=== PATIENT | female | born 1960 | race Caucasian/White ===

== ENCOUNTER 2017-05-13 17:00 | Emergency (ER) | payer OTHER ==
[~2017-05-13] VITALS: Ht 167.6 cm; Wt 90.0 kg
[~2017-05-13 17:00] MED LIST: FINA15GE2 TOP; HYDR10SO PO; RIVA10 PO; Z.0.CPM; ZOLP1TAB32 PO
[2017-05-13 17:02] VITALS: BP 149/75; PULSE 68; RESP 20; TEMP 97.9; O2SAT 99
[2017-05-13] MEDS ORDERED: FINA15GE TOPICAL (17:18)
--- NOTE | 2017-05-13 17:36 | PD ---
HPI Chief Complaint: Fall Time Seen by Provider: 17:21 Travel History International Travel<30 days: No Contact w/Intl Traveler<30days: No Traveled to known affect area: No History of Present Illness HPI 56 years old female complains of left knee pain. Patient tripped and fell on the left knee this afternoon. Patient status post total left knee replacement 2 and half years ago. Patient states the pain is sharp pain localized to the anterior aspect of the left knee. Patient states that she had aching pain in the posterior aspect the left knee and the thigh area and the calf area. Patient denies any pain radiation. Patient states that the pain is worse with movement of the left knee joint and weightbearing. On a scale of 1-10 the pain is a 7. Patient denies any headache. Patient denies any neck pain. Patient denies any chest pain or shortness of breath. Patient denies abdominal pain. Patient denies any back pain. PFSH Past Medical History Cancer: No Cardiovascular Problems: No Diabetes: No Diminished Hearing: No Deep Vein Thrombosis: Yes (Right 03/2008) Endocrine: No Gastrointestinal Disorders: Yes (CONSTIPATION SECONDARY TO MEDICATION) Genitourinary: No Hepatitis: No Hiatal Hernia: No Hypertension: No Immune Disorder: No Medical other: No Musculoskeletal: Yes (LEFT KNEE PAIN, RIGHT KNEE ARTHROSCOPY ) Neurologic: Yes (HERNIATED DISK CERVICAL SPINE NUMBNESS RIGHT ARM & FINGERS) Psychiatric: No Reproductive: No Respiratory: Yes (ASTHMA) Integumentary: Yes (aldactone for skin problems) Thyroid Disease: No ?: Not Menopausal: Yes : 3 Para: 2 Miscarriage: 1 Past Surgical History Abdominal Surgery: No AICD: No Body Medical Devices: NONE Cardiac Surgery: No Ear Surgery: No Eye Surgery: No Genitourinary Surgery: No Gynecologic Surgery: No Joint Replacement: No Neurologic Surgery: No Oral Surgery: No Pacemaker: No Thoracic Surgery: No Other Surgery: Yes Social History Alcohol Use: Yes (SOCIAL) Tobacco Use: No Substance Use: No Allergies-Medications (Allergen,Severity, Reaction): Coded Allergies: Celebrex (Verified Allergy, Severe, ITCH, 03/23/15) Erythromycin (Verified Allergy, Severe, ITCH, 03/23/15) Morphine (Verified Allergy, Mild, 03/23/15) ITCHING Reported Meds & Prescriptions Reported Meds & Active Scripts Active Reported Finacea Topical (Azelaic Acid) 15% Gel 1 Applic TOPICAL BID Apply and gently massage a thin layer into affected areas on the face. Review of Systems General / Constitutional: No: Fever Eyes: No: Visual changes HENT: No: Headaches Cardiovascular: No: Chest Pain or Discomfort Respiratory: No: Shortness of Breath Gastrointestinal: No: Abdominal Pain Genitourinary: No: Dysuria Musculoskeletal: Positive: Pain Skin: No Rash Neurologic: No: Weakness Psychiatric: No: Depression Endocrine: No: Polydipsia Hematologic/Lymphatic: No: Easy Bruising Physical Exam Narrative GENERAL: Well-nourished, well-developed patient. SKIN: Focused skin assessment warm/dry. HEAD: Normocephalic. EYES: No scleral icterus. No injection or drainage. NECK: Supple, trachea midline. No JVD or lymphadenopathy. CARDIOVASCULAR: Regular rate and rhythm without murmurs, gallops, or rubs. RESPIRATORY: Breath sounds equal bilaterally. No accessory muscle use. GASTROINTESTINAL: Abdomen soft, non-tender, nondistended. MUSCULOSKELETAL: No cyanosis, or edema. BACK: Nontender without obvious deformity. No CVA tenderness. Patient has moderate tenderness on palpation prepatellar area of the left knee. Mild tenderness on palpation popliteal area and distal aspect of posterior aspect of left thigh, proximal aspect of the left calf Area. Full range motion of left knee. Knee joints stable. No effusion noted. Data Data Last Documented VS Vital Signs Date Time Temp Pulse Resp B/P Pulse Ox O2 Delivery O2 Flow Rate FiO2 05/13/17 17:02 97.9 68 20 149/75 99 Room Air Orders Knee, Complete (4vws) (05/13/17 17:24) Splint Or Brace Apply/Monitor (05/13/17 18:12) [facility] Medical Decision Making Medical Screen Exam Complete: Yes Emergency Medical Condition: Yes Interpretation(s) 18 10 PM. X-ray left knee showed no acute bony injury. Differential Diagnosis Differential diagnosis including contusion, fracture, dislocation, damage to the hardware. Narrative Course 56 years old female with left knee injury. Status post total left knee replacement in the past. Diagnosis Primary Impression: Contusion of left knee Qualified Code: S80.02XA - Contusion of left knee, initial encounter Additional Impression: Left knee sprain Qualified Code: S83.92XA - Sprain of left knee, unspecified ligament, initial encounter Patient Instructions: General Instructions Additional Instructions: Icepack as needed. Matteo wrap to left knee. Follow with an orthopedist if persistent problem. Tylenol or ibuprofen for pain. Med/Other Pt SpecificInfo: Prescription(s) given Disposition: 01 DISCHARGE HOME Condition: Stable Jake Delatorre MD May 13, 2017 17:35
--- NOTE | 2017-05-13 18:10 | RADRPT ---
EXAM DATE/TIME: 05/13/2017 17:39 [facility] COMPARISON: No previous studies available for comparison. INDICATIONS : Left knee pain after fall MEDICAL HISTORY : None. SURGICAL HISTORY : Total knee replacement, left. ENCOUNTER: Initial ACUITY: 1 day PAIN SCORE: 9/10 LOCATION: Left knee FINDINGS: 4 views left knee. Total knee prosthesis in place. Bone alignment within normal limits. No evidence of fracture. Moderate sized joint effusion. Nonspecific 9 mm ossific density in the posterior aspect of the joint on the lateral view. CONCLUSION: 1. Total knee prosthesis. Alignment within normal limits. 2. Moderate-sized joint effusion. 3. 9 mm ossific density posteriorly on the lateral view only indicating periarticular or intra-articu lar ossicle. No donor site identified. No other evidence of fracture. Titi Sesay MD on May 13, 2017 at 18:07 Board Certified Radiologist. This report was verified electronically.
== END 2017-05-13 18:31 | disposition home or self-care (01) ==
LOC: NEPD 17:00
DX: S80.02XA Contusion of left knee, initial encounter (principal); S83.92XA Sprain of unspecified site of left knee, initial encounter; W01.0XXA Fall on same level from slipping, tripping and stumbling without subsequent striking against object, initial encounter; Z96.652 Presence of left artificial knee joint
CPT/HCPCS: 29530; 73564

== ENCOUNTER 2017-07-09 17:22 | Inpatient (IN) | payer OTHER ==
[~2017-07-09] VITALS: Ht 167.6 cm; Wt 94.3 kg
[~2017-07-09 17:22] MED LIST changes: +FINA15GE TOPICAL; -FINA15GE2 TOP; -HYDR10SO PO; -RIVA10 PO; -Z.0.CPM; -ZOLP1TAB32 PO
[2017-07-09 17:26] VITALS: BP 135/74; PULSE 74; RESP 16; TEMP 97.9; O2SAT 98
[2017-07-09 18:56] VITALS: RESP 17; O2SAT 99
--- NOTE | 2017-07-09 18:58 | PD ---
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 Patient describes it currently as a 2-3 out of 10 as a dull ache in the central chest radiating to her back. Patient denies nausea, vomiting, fever, chills, heartburn, shortness of breath, wheezing, previous cardiac history. Patient does report 3 weeks of increasing anxiety and stress related to her work place. She is having difficulty sleeping which is why she took the Ambien last evening. She has had no abdominal surgery. She has no other medical issues other than a knee replacement in the left knee which is where she had the Ambien left over from. Patient states the pain does not seem to worsen with exertion or with eating food. She denies diarrhea. No urinary symptoms. No vaginal symptoms. Patient has an appointment with her PCP on Sunday for her anxiety. Patient is allergic to Celebrex, erythromycin, and morphine. PFSH Past Medical History Cancer: No Cardiovascular Problems: No Diabetes: No Diminished Hearing: No Deep Vein Thrombosis: Yes (Right 03/2008) Endocrine: No Gastrointestinal Disorders: Yes (CONSTIPATION SECONDARY TO MEDICATION) Genitourinary: No Hepatitis: No Hiatal Hernia: No Hypertension: No Immune Disorder: No Musculoskeletal: Yes (LEFT KNEE PAIN, RIGHT KNEE ARTHROSCOPY ) Neurologic: Yes (HERNIATED DISK CERVICAL SPINE NUMBNESS RIGHT ARM & FINGERS) Psychiatric: No Reproductive: No Respiratory: Yes (ASTHMA) Integumentary: Yes (aldactone for skin problems) Thyroid Disease: No Menopausal: Yes : 3 Para: 2 Miscarriage: 1 Past Surgical History Abdominal Surgery: No AICD: No Body Medical Devices: NONE Cardiac Surgery: No Ear Surgery: No Eye Surgery: No Genitourinary Surgery: No Gynecologic Surgery: No Joint Replacement: No Neurologic Surgery: No Oral Surgery: No Pacemaker: No Thoracic Surgery: No Other Surgery: Yes Social History Alcohol Use: Yes (SOCIAL) Tobacco Use: No Substance Use: No Allergies-Medications (Allergen,Severity, Reaction): Coded Allergies: celecoxib (Verified Allergy, Severe, ITCH, 07/09/17) erythromycin base (Verified Allergy, Severe, ITCH, 07/09/17) morphine (Verified Allergy, Mild, itching, 07/09/17) ITCHING Reported Meds & Prescriptions Reported Meds & Active Scripts Active Reported Finacea Topical (Azelaic Acid) 15% Gel 1 Applic TOPICAL BID Apply and gently massage a thin layer into affected areas on the face. Review of Systems Except as stated in HPI: all other systems reviewed are Neg General / Constitutional: No: Fever, Chills Eyes: No: Visual changes HENT: No: Headaches Cardiovascular: Positive: Chest Pain or Discomfort, No: Palpitations, Irregular Rhythm, Tachycardia, Diaphoresis, Syncope, Dyspnea on exertion, Varicosities, Edema, Cyanosis, Varicosities, Phlebitis, Claudication Respiratory: No: Cough, Shortness of Breath, Wheezing Gastrointestinal: No: Nausea, Vomiting, Diarrhea, Abdominal Pain Genitourinary: No: Dysuria Musculoskeletal: No: Pain Skin: No Rash Neurologic: No: Weakness Psychiatric: No: Depression Endocrine: No: Polydipsia Hematologic/Lymphatic: No: Easy Bruising Physical Exam Narrative GENERAL: Patient appears anxious but otherwise in no acute distress. SKIN: Warm and dry. Normal color. Normal turgor. No diaphoresis. HEAD: Atraumatic. Normocephalic. EYES: Pupils equal and round. No scleral icterus. No injection or drainage. ENT: No nasal bleeding or discharge. Mucous membranes pink and moist. Pharynx is clear. Airway is patent. NECK: Trachea midline. Supple and nontender. CARDIOVASCULAR: Regular rate and rhythm. No murmurs gallops or rubs appreciated. RESPIRATORY: No accessory muscle use. Clear to auscultation. Breath sounds equal bilaterally. GASTROINTESTINAL: Abdomen soft, non-tender, nondistended. Hepatic and splenic margins not palpable. MUSCULOSKELETAL: Extremities without clubbing, cyanosis, or edema. No obvious deformities. NEUROLOGICAL: Awake and alert. No obvious cranial nerve deficits. Motor grossly within normal limits. Five out of 5 muscle strength in the arms and legs. Normal speech. PSYCHIATRIC: Appropriate mood and affect; insight and judgment normal. Data Data Last Documented VS Vital Signs Date Time Temp Pulse Resp B/P (MAP) Pulse Ox O2 Delivery O2 Flow Rate FiO2 07/09/17 21:02 64 16 126/67 (86) 97 Room Air 07/09/17 17:26 97.9 Orders Orders Electrocardiogram (07/09/17 ) Ckmb (Isoenzyme) Profile (07/09/17 18:50) Complete Blood Count With Diff (07/09/17 18:50) Comprehensive Metabolic Panel (07/09/17 18:50) Magnesium (Mg) (07/09/17 18:50) Prothrombin Time / Inr (Pt) (07/09/17 18:50) Act Partial Throm Time (Ptt) (07/09/17 18:50) Troponin I (07/09/17 18:50) Chest, Single Ap (07/09/17 18:50) Ecg Monitoring (07/09/17 18:50) Bilateral Bp Monitoring (07/09/17 18:50) Iv Access Insert/Monitor (07/09/17 18:50) Oximetry (07/09/17 18:50) Oxygen Administration (07/09/17 18:50) Aspirin Chew (Aspirin Chew) (07/09/17 19:00) Sodium Chloride 0.9% Flush (Ns Flush) (07/09/17 19:00) Sodium Chlorid 0.9% 500 Ml Inj (Ns 500 M (07/09/17 19:00) Lipase (07/09/17 18:50) Lorazepam Inj (Ativan Inj) (07/09/17 19:00) CKMB (07/09/17 19:00) CKMB% (07/09/17 19:00) Nitroglycerin Sl (Nitrostat Sl) (07/09/17 20:15) Sodium Chlor 0.9% 1000 Ml Inj (Ns 1000 M (07/09/17 20:15) Ct Abd/Pel W Iv Contrast(Rout) (07/09/17 21:05) Iohexol 350 Inj (Omnipaque 350 Inj) (07/09/17 21:25) Admit Order (Ed Use Only) (07/09/17 21:46) Labs Laboratory Tests Test 07/09/17 19:00 White Blood Count 6.6 TH/MM3 Red Blood Count 3.97 MIL/MM3 Hemoglobin 12.8 GM/DL Hematocrit 39.2 % Mean Corpuscular Volume 98.9 FL Mean Corpuscular Hemoglobin 32.3 PG Mean Corpuscular Hemoglobin Concent 32.7 % Red Cell Distribution Width 13.8 % Platelet Count 207 TH/MM3 Mean Platelet Volume 9.5 FL Neutrophils (%) (Auto) 60.6 % Lymphocytes (%) (Auto) 29.5 % Monocytes (%) (Auto) 6.7 % Eosinophils (%) (Auto) 2.6 % Basophils (%) (Auto) 0.6 % Neutrophils # (Auto) 4.0 TH/MM3 Lymphocytes # (Auto) 1.9 TH/MM3 Monocytes # (Auto) 0.4 TH/MM3 Eosinophils # (Auto) 0.2 TH/MM3 Basophils # (Auto) 0.0 TH/MM3 CBC Comment DIFF FINAL Differential Comment Prothrombin Time 10.2 SEC Prothromb Time International Ratio 0.9 RATIO Activated Partial Thromboplast Time 24.6 SEC Blood Urea Nitrogen 13 MG/DL Creatinine 0.62 MG/DL Random Glucose 81 MG/DL Total Protein 6.9 GM/DL Albumin 3.6 GM/DL Calcium Level 8.5 MG/DL Magnesium Level 2.3 MG/DL Alkaline Phosphatase 81 U/L Aspartate Amino Transf (AST/SGOT) 18 U/L Alanine Aminotransferase (ALT/SGPT) 21 U/L Total Bilirubin 0.5 MG/DL Sodium Level 140 MEQ/L Potassium Level 4.2 MEQ/L Chloride Level 107 MEQ/L Carbon Dioxide Level 25.2 MEQ/L Anion Gap 8 MEQ/L Total Creatine Kinase 155 U/L Creatine Kinase MB 1.8 NG/ML Troponin I LESS THAN 0.02 NG/ML Lipase 3165 U/L [facility] Medical Decision Making Medical Screen Exam Complete: Yes Emergency Medical Condition: Yes Differential Diagnosis Chest pain. Cardiac syndrome. Pancreatitis. Gallbladder disease. Anxiety. Narrative Course Patient is felt to be medically stable at time of exam. EKG performed in triage is unremarkable with a normal sinus rhythm without ST changes. Labs ordered including CBC, CMP, lipase, cardiac panel, urinalysis. Chest x-ray is ordered. IV access is obtained patient is given 1 mg lorazepam IV. Patient is given chewable aspirin 324 mg by mouth. CBC is unremarkable. Coags are normal. Chemistries are unremarkable. Troponin is less than 0.02. Lipase is elevated at 3165. CT of the abdomen and pelvis is ordered with IV contrast. Patient is discussed with Dr. Durant, and the patient is reassessed and found to have little pain after the above medications. She is discussed with Dr. Simpson, who agreed to admit the patient under Dr. Vera. CT results are still pending. Diagnosis Primary Impression: Acute pancreatitis Qualified Codes: K85.90 - Acute pancreatitis without necrosis or infection, unspecified Admitting Information Admitting Physician Requests: Admit Condition: Stable Reji De La Paz Jul 09, 2017 18:58
[2017-07-09] MEDS ORDERED: ASPIRIN 81 MG CHEW TAB PO ONE (19:00)
[2017-07-09] MEDS ORDERED: SODIUM CHLORIDE 0.9% FLUSH 10 ML FLUSH IVF PRN (19:00)
[2017-07-09] MEDS ORDERED: SODIUM CHLORID 0.9% 500 ML INJ 500 ML IV ONE (19:00)
[2017-07-09] MEDS ORDERED: LORazepam 2 MG/ML VIAL IV PUSH ONE (19:00)
[2017-07-09 19:06] VITALS: BP_SYST 112; BP_SYST 114; BP_DIAS 70; BP_DIAS 79; PULSE 79; RESP 17; O2SAT 99
--- NOTE | 2017-07-09 19:32 | RADRPT ---
EXAM DATE/TIME: 07/09/2017 18:56 [facility] COMPARISON: No previous studies available for comparison. INDICATIONS : Chest pain. MEDICAL HISTORY : None. SURGICAL HISTORY : Total knee replacement, left ENCOUNTER: Initial ACUITY: 2 days PAIN SCORE: 2/10 LOCATION: Bilateral chest FINDINGS: A single view of the chest demonstrates the lungs to be symmetrically aerated without evidence of mas s, infiltrate or effusion. The cardiomediastinal contours are unremarkable. Osseous structures are intact. CONCLUSION: 1. No acute cardiopulmonary disease. Gm Dill MD on July 09, 2017 at 19:30 Board Certified Radiologist. This report was verified electronically.
[2017-07-09 19:42] LABS: BASOPHIL % 0.6 % (0.0-2.0); EOSINOPHIL # 0.2 TH/MM3 (0-0.4); EOSINOPHIL % 2.6 % (0.0-4.0); HEMATOCRIT 39.2 % (35.0-46.0); HEMO FLAGS DIFF FINAL; LYMPH % 29.5 % (9.0-44.0); LYMPHOCYTE # 1.9 TH/MM3 (1.0-4.8); MEAN CELL VOLUME 98.9 FL (80.0-100.0); MEAN CORPUSCULAR HEMOGLOBIN 32.3 PG (27.0-34.0); MEAN CORPUSCULAR HGB CONC 32.7 % (32.0-36.0); MONO % 6.7 % (0.0-8.0); NEUT % 60.6 % (16.0-70.0); PLATELET COUNT 207 TH/MM3 (150-450); RED BLOOD COUNT 3.97 MIL/MM3 (4.00-5.30); RED CELL DISTRIBUTION WIDTH 13.8 % (11.6-17.2); WHITE BLOOD COUNT 6.6 TH/MM3 (4.0-11.0)
[2017-07-09 19:59] LABS: ANION GAP 8 MEQ/L (5-15); AST (GOT) 18 U/L (15-37); BICARBONATE 25.2 MEQ/L (21.0-32.0); BLOOD UREA NITROGEN 13 MG/DL (7-18); CHLORIDE 107 MEQ/L (98-107); MAGNESIUM 2.3 MG/DL (1.5-2.5); POTASSIUM 4.2 MEQ/L (3.5-5.1); SODIUM (NA) 140 MEQ/L (136-145)
[2017-07-09 20:00] LABS: ALT (GPT) 21 U/L (10-53)
[2017-07-09 20:04] LABS: ALKALINE PHOSPHATASE 81 U/L (45-117); CREATINE KINASE 155 U/L (26-192); TOTAL BILIRUBIN ADULT 0.5 MG/DL (0.2-1.0)
[2017-07-09 20:07] LABS: APTT (PATIENT) 24.6 SEC (24.3-30.1); INTERNATIONAL NORMALIZED RATIO 0.9 RATIO; PROTHROMBIN TIME - PATIENT 10.2 SEC (9.8-11.6)
[2017-07-09] MEDS ORDERED: NITROGLYCERIN 0.4 MG SL 25 TABS/BTL SL ONE (20:15)
[2017-07-09] MEDS ORDERED: SODIUM CHLOR 0.9% 1000 ML INJ 1,000 ML IV ONE (20:15)
[2017-07-09 20:16] LABS: CKMB 1.8 NG/ML (0.5-3.6)
--- NOTE | 2017-07-09 20:28 | PD ---
Physical Exam Date Seen by Provider: Jul 09, 2017 Time Seen by Provider: 20:25 Narrative GENERAL: Well-developed well-nourished female in no acute distress no respiratory distress; pain 0/10 in intensity SKIN: Warm and dry. HEAD: Normocephalic. EYES: No scleral icterus. No injection or drainage. NECK: Supple, trachea midline. No JVD or lymphadenopathy. CARDIOVASCULAR: Regular rate and rhythm without murmurs, gallops, or rubs. RESPIRATORY: Breath sounds equal bilaterally. No accessory muscle use. GASTROINTESTINAL: Abdomen soft, non-tender, nondistended. MUSCULOSKELETAL: No cyanosis, or edema. BACK: Nontender without obvious deformity. No CVA tenderness. Data Data Last Documented VS Vital Signs Date Time Temp Pulse Resp B/P (MAP) Pulse Ox O2 Delivery O2 Flow Rate FiO2 07/09/17 21:02 64 16 126/67 (86) 97 Room Air 07/09/17 17:26 97.9 Orders Orders Electrocardiogram (07/09/17 ) Ckmb (Isoenzyme) Profile (07/09/17 18:50) Complete Blood Count With Diff (07/09/17 18:50) Comprehensive Metabolic Panel (07/09/17 18:50) Magnesium (Mg) (07/09/17 18:50) Prothrombin Time / Inr (Pt) (07/09/17 18:50) Act Partial Throm Time (Ptt) (07/09/17 18:50) Troponin I (07/09/17 18:50) Chest, Single Ap (07/09/17 18:50) Ecg Monitoring (07/09/17 18:50) Bilateral Bp Monitoring (07/09/17 18:50) Iv Access Insert/Monitor (07/09/17 18:50) Oximetry (07/09/17 18:50) Oxygen Administration (07/09/17 18:50) Aspirin Chew (Aspirin Chew) (07/09/17 19:00) Sodium Chloride 0.9% Flush (Ns Flush) (07/09/17 19:00) Sodium Chlorid 0.9% 500 Ml Inj (Ns 500 M (07/09/17 19:00) Lipase (07/09/17 18:50) Lorazepam Inj (Ativan Inj) (07/09/17 19:00) CKMB (07/09/17 19:00) CKMB% (07/09/17 19:00) Nitroglycerin Sl (Nitrostat Sl) (07/09/17 20:15) Sodium Chlor 0.9% 1000 Ml Inj (Ns 1000 M (07/09/17 20:15) Ct Abd/Pel W Iv Contrast(Rout) (07/09/17 21:05) Iohexol 350 Inj (Omnipaque 350 Inj) (07/09/17 21:25) Admit Order (Ed Use Only) (07/09/17 21:46) Labs Laboratory Tests Test 07/09/17 19:00 White Blood Count 6.6 TH/MM3 Red Blood Count 3.97 MIL/MM3 Hemoglobin 12.8 GM/DL Hematocrit 39.2 % Mean Corpuscular Volume 98.9 FL Mean Corpuscular Hemoglobin 32.3 PG Mean Corpuscular Hemoglobin Concent 32.7 % Red Cell Distribution Width 13.8 % Platelet Count 207 TH/MM3 Mean Platelet Volume 9.5 FL Neutrophils (%) (Auto) 60.6 % Lymphocytes (%) (Auto) 29.5 % Monocytes (%) (Auto) 6.7 % Eosinophils (%) (Auto) 2.6 % Basophils (%) (Auto) 0.6 % Neutrophils # (Auto) 4.0 TH/MM3 Lymphocytes # (Auto) 1.9 TH/MM3 Monocytes # (Auto) 0.4 TH/MM3 Eosinophils # (Auto) 0.2 TH/MM3 Basophils # (Auto) 0.0 TH/MM3 CBC Comment DIFF FINAL Differential Comment Prothrombin Time 10.2 SEC Prothromb Time International Ratio 0.9 RATIO Activated Partial Thromboplast Time 24.6 SEC Blood Urea Nitrogen 13 MG/DL Creatinine 0.62 MG/DL Random Glucose 81 MG/DL Total Protein 6.9 GM/DL Albumin 3.6 GM/DL Calcium Level 8.5 MG/DL Magnesium Level 2.3 MG/DL Alkaline Phosphatase 81 U/L Aspartate Amino Transf (AST/SGOT) 18 U/L Alanine Aminotransferase (ALT/SGPT) 21 U/L Total Bilirubin 0.5 MG/DL Sodium Level 140 MEQ/L Potassium Level 4.2 MEQ/L Chloride Level 107 MEQ/L Carbon Dioxide Level 25.2 MEQ/L Anion Gap 8 MEQ/L Total Creatine Kinase 155 U/L Creatine Kinase MB 1.8 NG/ML Troponin I LESS THAN 0.02 NG/ML Lipase 3165 U/L [facility] Medical Record Reviewed: Yes Supervised Visit with LUIS: Yes Interpretation(s) CBC & BMP Diagram 07/09/17 19:00 Total Protein 6.9, Albumin 3.6, Calcium Level 8.5, Magnesium Level 2.3, Alkaline Phosphatase 81, Aspartate Amino Transf (AST/SGOT) 18, Alanine Aminotransferase (ALT/SGPT) 21, Total Bilirubin 0.5 CT abdomen and pelvis; no acute process per reading radiologist Dr. Dill Differential Diagnosis Chest pain, atypical chest pain, ACS, SC, biliary colic, pancreatitis, gastritis , peptic ulcer disease, esophageal spasm, abdominal aortic aneurysm Narrative Course 56-year-old female with intermittent chest pain over the past several days with episode last evening that resolved after taking Ambien and then recurred this afternoon. Patient states under a lot of stress at school and patient here was identified to have an EKG which revealed no acute injury pattern change patient was administered Ativan for her complaint of anxiety; lab work was collected and sent for resulting troponin I was found to be less than 0.02 not elevated and then subsequently lipase was found to be elevated 3165 concerning for acute pancreatitis. Patient was seen with mid-level and I agree with differential, findings, and management of this patient and also evaluated this patient myself. CT imaging study has been ordered and plan will be to admit patient. Patient receiving IV fluid hydration; antiemetic and IV pain medication. Currently patient's pain is 0/10 in intensity. Patient admitted to medicine service. Physician Communication Physician Communication case discussed with [facility] MD for admission Diagnosis Primary Impression: Acute pancreatitis Qualified Codes: K85.90 - Acute pancreatitis without necrosis or infection, unspecified Admitting Information Admitting Physician Requests: Admit Condition: Stable Yecenia Durant MD Jul 09, 2017 20:28
[2017-07-09 21:02] VITALS: BP 126/67; PULSE 64; RESP 16; O2SAT 97
[2017-07-09] MEDS ORDERED: IOHEXOL 350 MG/ML 10 ML VIAL (for RAD DIAG) IVCONTRAST ONE (21:25)
--- NOTE | 2017-07-09 21:49 | RADRPT ---
EXAM DATE/TIME: 07/09/2017 21:25 [facility] COMPARISON: No previous studies available for comparison. INDICATIONS : Epigastric pain today IV CONTRAST: 85 cc Omnipaque 350 (iohexol) IV ORAL CONTRAST: No oral contrast ingested. RADIATION DOSE: 15.36 CTDIvol (mGy) MEDICAL HISTORY : deep vein thrombosis SURGICAL HISTORY : None. ENCOUNTER: Initial ACUITY: 1 day PAIN SCALE: 6/10 LOCATION: epigastric abdomen TECHNIQUE: Volumetric scanning of the abdomen and pelvis was performed. Using automated exposure control and ad justment of the mA and/or kV according to patient size, radiation dose was kept as low as reasonably achievable to obtain optimal diagnostic quality images. DICOM format image data is available electro nically for review and comparison. FINDINGS: Examination of the lung bases demonstrates no abnormality. No pleural fluid is identified. No pulmona ry nodules are present. The liver and spleen are normal in size and no focal defects are identified. The gallbladder and pancreas are unremarkable. No intrahepatic or extrahepatic ductal dilatation is s een. The adrenal glands are unremarkable. The right kidney is unremarkable. An renal pelvis is presen t on the left. Examination of the pelvis demonstrates no evidence of free fluid or pelvic mass. No abnormally enlarg ed inguinal or retroperitoneal lymph nodes are present. The bladder is unremarkable. The uterus is en larged characteristic of fibroids measuring 8 cm at the fundus. CONCLUSION: 1. No evidence of acute abdominal or pelvic process. No masses are identified. 2. Enlarged uterus with multiple fibroids Gm Dill MD on July 09, 2017 at 21:44 Board Certified Radiologist. This report was verified electronically.
[2017-07-09] MEDS ORDERED: SENNOSIDES 8.6 MG TAB PO PRN (22:00)
[2017-07-09] MEDS ORDERED: MAGNESIUM HYDROXIDE SUSP 30 ML CUP PO PRN (22:00)
[2017-07-09] MEDS ORDERED: NALOXONE HCL 0.4 MG/ML AMP IV PUSH PRN (22:00)
[2017-07-09] MEDS ORDERED: HYDROmorphone HCL 2 MG TAB PO PRN (22:00)
[2017-07-09] MEDS ORDERED: ONDANSETRON HCL 4 MG/2 ML VIAL IVP PRN (22:00)
[2017-07-09] MEDS ORDERED: BISACODYL 10 MG SUPP RECTAL PRN (22:00)
[2017-07-09] MEDS ORDERED: SODIUM CHLORIDE 0.9% FLUSH 10 ML FLUSH IV FLUSH PRN (22:00)
[2017-07-09] MEDS ORDERED: TEMAZEPAM 15 MG CAP PO PRN (22:00)
[2017-07-09] MEDS ORDERED: LACTULOSE SYRUP 20 GM/30 ML CUP PO PRN (22:00)
--- NOTE | 2017-07-09 22:07 | HHI.HP ---
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 Patient describes it currently as a 2-3 out of 10 as a dull ache in the central chest radiating to her back. Patient denies nausea, vomiting, fever, chills, heartburn, shortness of breath, wheezing, previous cardiac history. Patient does report 3 weeks of increasing anxiety and stress related to her work place. She is having difficulty sleeping which is why she took the Ambien last evening. She has had no abdominal surgery. She has no other medical issues other than a knee rin the left knee surgery which is where she had the Ambien left over from. Patient states the pain does not seem to worsen with exertion or with eating food. She denies diarrhea. No urinary symptoms. No vaginal symptoms. Patient has an appointment with her PCP on Sunday for her anxiety. Patient is allergic to Celebrex, erythromycin, and morphine. In er lab work was consistent with elevated lipase will admit r/o pancreatitis CT abdomen Review of Systems Cardiovascular: COMPLAINS OF: Chest pain Musculoskeletal: COMPLAINS OF: Back pain Past Family Social History Past Medical History anxiety,DVT 2008 djd c spine knees Past Surgical History knee surgery Reported Medications none ambien left over Allergies: Coded Allergies: celecoxib (Verified Allergy, Severe, ITCH, 07/09/17) erythromycin base (Verified Allergy, Severe, ITCH, 07/09/17) morphine (Verified Allergy, Mild, itching, 07/09/17) ITCHING Social History non smoker drinks on weekend not heavy Physical Exam Vital Signs Vital Signs Date Time Temp Pulse Resp B/P (MAP) Pulse Ox O2 Delivery O2 Flow Rate FiO2 07/09/17 21:02 64 16 126/67 (86) 97 Room Air 07/09/17 19:06 79 17 112/70 (84) 99 Room Air 114/79 (91) 07/09/17 18:56 99 Room Air 07/09/17 18:56 74 17 99 Room Air 07/09/17 18:56 17 99 Room Air 07/09/17 17:26 97.9 74 16 135/74 (94 98 Physical Exam GENERAL: This is a well-nourished, well-developed patient, in no apparent distress. SKIN: No rashes, ecchymoses or lesions. Cool and dry. HEAD: Atraumatic. Normocephalic. No temporal or scalp tenderness. EYES: Pupils equal round and reactive. Extraocular motions intact. No scleral icterus. No injection or drainage. ENT: Nose without bleeding, purulent drainage or septal hematoma. Throat without erythema, tonsillar hypertrophy or exudate. Uvula midline. Airway patent. NECK: Trachea midline. No JVD or lymphadenopathy. Supple, nontender, no meningeal signs. CARDIOVASCULAR: Regular rate and rhythm without murmurs, gallops, or rubs. RESPIRATORY: Clear to auscultation. Breath sounds equal bilaterally. No wheezes , rales, or rhonchi. GASTROINTESTINAL: Abdomen soft, non-tender, nondistended. No hepato-splenomegaly , or palpable masses. No guarding. MUSCULOSKELETAL: Extremities without clubbing, cyanosis, or edema. No joint tenderness, effusion, or edema noted. No calf tenderness. Negative Homans sign bilaterally. NEUROLOGICAL: Awake and alert. Cranial nerves II through XII intact. Motor and sensory grossly within normal limits. Five out of 5 muscle strength in all muscle groups. Normal speech. Laboratory Laboratory Tests Test 07/09/17 19:00 White Blood Count 6.6 Red Blood Count 3.97 Hemoglobin 12.8 Hematocrit 39.2 Mean Corpuscular Volume 98.9 Mean Corpuscular Hemoglobin 32.3 Mean Corpuscular Hemoglobin Concent 32.7 Red Cell Distribution Width 13.8 Platelet Count 207 Mean Platelet Volume 9.5 Neutrophils (%) (Auto) 60.6 Lymphocytes (%) (Auto) 29.5 Monocytes (%) (Auto) 6.7 Eosinophils (%) (Auto) 2.6 Basophils (%) (Auto) 0.6 Neutrophils # (Auto) 4.0 Lymphocytes # (Auto) 1.9 Monocytes # (Auto) 0.4 Eosinophils # (Auto) 0.2 Basophils # (Auto) 0.0 CBC Comment DIFF FINAL Differential Comment Prothrombin Time 10.2 Prothromb Time International Ratio 0.9 Activated Partial Thromboplast Time 24.6 Blood Urea Nitrogen 13 Creatinine 0.62 Random Glucose 81 Total Protein 6.9 Albumin 3.6 Calcium Level 8.5 Magnesium Level 2.3 Alkaline Phosphatase 81 Aspartate Amino Transf (AST/SGOT) 18 Alanine Aminotransferase (ALT/SGPT) 21 Total Bilirubin 0.5 Sodium Level 140 Potassium Level 4.2 Chloride Level 107 Carbon Dioxide Level 25.2 Anion Gap 8 Total Creatine Kinase 155 Creatine Kinase MB 1.8 Troponin I LESS THAN 0.02 Lipase 3165 Result Diagram: 07/09/17189907/09/171899 Imaging chest xray negative Course ekg lab work negative Caprini VTE Risk Assessment Caprini VTE Risk Assessment: Mod/High Risk (score >= 2) Caprini Risk Assessment Model Point Value = 1 Point Value = 2 Point Value = 3 Point Value = 5 Age 41-60 Minor surgery BMI > 25 kg/m2 Swollen legs Varicose veins or History of unexplained or recurrent spontaneous Oral contraceptives or hormone replacement Sepsis (< 1 month) Serious lung disease, including pneumonia (< 1 month) Abnormal pulmonary function Acute myocardial infarction Congestive heart failure (< 1 month) History of inflammatory bowel disease Medical patient at bed rest Age 61-74 Arthroscopic surgery Major open surgery (> 45 min) Laparoscopic surgery (> 45 min) Malignancy Confined to bed (> 72 hours) Immobilizing plaster cast Central venous access Age >= 75 History of VTE Family history of VTE Factor V Leiden Prothrombin [id number] Lupus anticoagulant Anticardiolipin antibodies Elevated serum homocysteine Heparin-induced thrombocytopenia Other congenital or acquired thrombophilia Stroke (< 1 month) Elective arthroplasty Hip, pelvis, or leg fracture Acute spinal cord injury (< 1 month) Prophylaxis Regimen Total Risk Factor Score Risk Level Prophylaxis Regimen 0-1 Low Early ambulation 2 Moderate Order ONE of the following: *Sequential Compression Device (SCD) *Heparin 5000 units SQ BID 3-4 Higher Order ONE of the following medications: *Heparin 5000 units SQ TID *Enoxaparin/Lovenox 40 mg SQ daily (WT < 150 kg, CrCl > 30 mL/min) *Enoxaparin/Lovenox 30 mg SQ daily (WT < 150 kg, CrCl > 10-29 mL/min) *Enoxaparin/Lovenox 30 mg SQ BID (WT < 150 kg, CrCl > 30 mL/min) AND/OR *Sequential Compression Device (SCD) 5 or more Highest Order ONE of the following medications: *Heparin 5000 units SQ TID (Preferred with Epidurals) *Enoxaparin/Lovenox 40 mg SQ daily (WT < 150 kg, CrCl > 30 mL/min) *Enoxaparin/Lovenox 30 mg SQ daily (WT < 150 kg, CrCl > 10-29 mL/min) *Enoxaparin/Lovenox 30 mg SQ BID (WT < 150 kg, CrCl > 30 mL/min) AND *Sequential Compression Device (SCD) Assessment and Plan Problem List: (1) Acute pancreatitis ICD Codes: K85.90 - Acute pancreatitis without necrosis or infection, unspecified Status: Acute Plan: CT abdomen IV fluid pain meds follow up labs (2) Chest pain ICD Codes: R07.9 - Chest pain, unspecified Plan: atypical will place on monitor ekg in am repeat labs pain most likely related to pancreatitis Assessment and Plan further plan as case develops Code Status full Discussed Condition With patient Physician Certification 2 Midnight Certification Type: Admission for Inpatient Services Order for Inpatient Services The services are ordered in accordance with Medicare regulations or non- Medicare payer requirements, as applicable. In the case of services not specified as inpatient-only, they are appropriately provided as inpatient services in accordance with the 2-midnight benchmark. Estimated LOS (days): 2 2 days is the estimated time the patient will need to remain in the hospital, assuming treatment plan goals are met and no additional complications. Post-Hospital Plan: Home Problem Qualifiers (1) Acute pancreatitis: Qualified Codes: K85.90 - Acute pancreatitis without necrosis or infection, unspecified Dayne Montemayor MD Jul 09, 2017 22:07
[2017-07-10] VITALS: BP 110/70; PULSE 63; RESP 20; TEMP 96.5; O2SAT 98
[2017-07-10] MEDS: SODIUM CHLOR 0.45% 1000 ML INJ 1,000 ML IV SCH ×2 (00:17→08:32)
[2017-07-10 00:55] VITALS: PULSE 58
[2017-07-10 04:00] VITALS: BP 120/64; PULSE 62; RESP 20; TEMP 96.4; O2SAT 98
[2017-07-10 08:00] VITALS: BP 113/60; PULSE 59; RESP 16; TEMP 96.3; O2SAT 100
[2017-07-10] MEDS: DOCUSATE SODIUM 50 MG/SENNA 8.6 MG TAB PO SCH ×2 (08:30→22:04)
[2017-07-10] MEDS: SODIUM CHLORIDE 0.9% FLUSH 10 ML FLUSH IV FLUSH SCH ×2 (08:30→22:05)
[2017-07-10] MEDS: ACETAMINOPHEN 325 MG TAB PO PRN (08:31)
[2017-07-10] MEDS ORDERED: INFLUENZA VIRUS VACCINE (QUADRIVALENT) 0.5 ML SYR IM ONE (10:00)
--- NOTE | 2017-07-10 10:08 | EKG ---
Date Performed: 07/09/2017 Time Performed: 17:52:51 PTAGE: 56 years EKG: Sinus rhythm NONSPECIFIC T-WAVE ABNORMALITY BORDERLINE ECG PREVIOUS TRACING : 03/12/2015 09.40 Compared to prior tracing no significant change DOCTOR: Gm Niño Interpretating Date/Time 07/10/2017 10:06:15
--- NOTE | 2017-07-10 10:20 | RADRPT ---
EXAM DATE/TIME: 07/10/2017 07:45 [facility] COMPARISON: CT ABDOMEN & PELVIS W CONTRAST, July 09, 2017, 21:25. INDICATIONS : Abdomen pain. MEDICAL HISTORY : Deep venous thrombosis. Herniated cervical disc. Asthma. SURGICAL HISTORY : Total knee replacement, left. Right knee arthroscopy. ENCOUNTER: Initial ACUITY: 1 day PAIN SCORE: 2/10 LOCATION: Abdomen. MEASUREMENTS: LIVER: 16.8 cm length COMMON DUCT: 4 mm RIGHT KIDNEY: 10.6 x 5.1 x 6.2 cm LEFT KIDNEY: 10.1 x 5.5 x 6.1 cm SPLEEN: 9.6 cm length AORTA: 2.8cm maximal FINDINGS: LIVER: Slight increased echogenicity with borderline enlargement. No significant intrahepatic ductal dilatat ion or focal mass. COMMON DUCT: No intraluminal mass or stone visualized. GALLBLADDER: Minimal sludge near the gallbladder neck. Otherwise, no significant bowel wall thickening, pericholec ystic fluid, or sonographic Perez sign. PANCREAS: The visualized portions are within normal limits. RIGHT KIDNEY: No hydronephrosis, stone or mass. LEFT KIDNEY: Left renal pelvis appears to be mildly prominent similar to recent CT exam. Otherwise, no stone or si gnificant mass. SPLEEN: No focal lesion. AORTA: Non aneurysmal. IVC: Within normal limits. CONCLUSION: 1. Minimal gallbladder sludge without sonographic evidence for acute cholecystitis. 2. Stable mild prominence of the left renal collecting system likely exaggerated by extrarenal pelvis . 3. Borderline hepatomegaly with diffusely increased hepatic echogenicity consistent with hepatic stea tosis or medical liver disease. Trav Ramos MD on July 10, 2017 at 10:01 Board Certified Radiologist. This report was verified electronically.
[2017-07-10 12:00] VITALS: BP 114/63; PULSE 64; RESP 16; TEMP 96.6; O2SAT 100
--- NOTE | 2017-07-10 13:22 | EKG ---
Date Performed: 07/10/2017 Time Performed: 08:35:27 PTAGE: 56 years EKG: SINUS BRADYCARDIA LOW QRS VOLTAGE IN PRECORDIAL LEADS BORDERLINE ECG PREVIOUS TRACING : 07/09/2017 17.52 Compared to prior tracing no significant change DOCTOR: mG Niño Interpretating Date/Time 07/10/2017 13:21:56
[2017-07-10] MEDS ORDERED: KETOROLAC TROMETHAMINE 60 MG/2 ML (IM) VIAL IM PRN (13:30)
--- NOTE | 2017-07-10 15:10 | HHI.PR ---
Subjective Remarks Pt reports that she is still having intermittent chest discomfort Seems to occur episodically without any specific triggers. Some nausea, no vomiting No diarrhea. She states that the pain goes through her chest to her back Objective Vitals Vital Signs Date Time Temp Pulse Resp B/P (MAP) Pulse Ox O2 Delivery O2 Flow Rate FiO2 07/10/17 12:00 96.6 64 16 114/63 (80) 100 07/10/17 08:00 96.3 59 16 113/60 (77) 100 07/10/17 04:00 96.4 62 20 120/64 (82) 98 07/10/17 00:55 58 07/10/17 00:00 96.5 63 20 110/70 (83) 98 07/09/17 21:02 64 16 126/67 (86) 97 Room Air 07/09/17 19:06 79 17 112/70 (84) 99 Room Air 114/79 (91) 07/09/17 18:56 99 Room Air 07/09/17 18:56 74 17 99 Room Air 07/09/17 18:56 17 99 Room Air 07/09/17 17:26 97.9 74 16 135/74 (94) 98 07/10/17 07/10/17 07/11/17 14:59 22:59 06:59 Intake Total 1000 ml Balance 1000 ml IV Total 1000 ml Result Diagram: 07/09/17189907/09/171899 Other Results Laboratory Tests Test 07/09/17 19:00 07/10/17 07:55 White Blood Count 6.6 TH/MM3 Red Blood Count 3.97 MIL/MM3 Hemoglobin 12.8 GM/DL Hematocrit 39.2 % Mean Corpuscular Volume 98.9 FL Mean Corpuscular Hemoglobin 32.3 PG Mean Corpuscular Hemoglobin Concent 32.7 % Red Cell Distribution Width 13.8 % Platelet Count 207 TH/MM3 Mean Platelet Volume 9.5 FL Neutrophils (%) (Auto) 60.6 % Lymphocytes (%) (Auto) 29.5 % Monocytes (%) (Auto) 6.7 % Eosinophils (%) (Auto) 2.6 % Basophils (%) (Auto) 0.6 % Neutrophils # (Auto) 4.0 TH/MM3 Lymphocytes # (Auto) 1.9 TH/MM3 Monocytes # (Auto) 0.4 TH/MM3 Eosinophils # (Auto) 0.2 TH/MM3 Basophils # (Auto) 0.0 TH/MM3 CBC Comment DIFF FINAL Differential Comment Prothrombin Time 10.2 SEC Prothromb Time International Ratio 0.9 RATIO Activated Partial Thromboplast Time 24.6 SEC Blood Urea Nitrogen 13 MG/DL Creatinine 0.62 MG/DL Random Glucose 81 MG/DL Total Protein 6.9 GM/DL Albumin 3.6 GM/DL Calcium Level 8.5 MG/DL Magnesium Level 2.3 MG/DL Alkaline Phosphatase 81 U/L Aspartate Amino Transf (AST/SGOT) 18 U/L Alanine Aminotransferase (ALT/SGPT) 21 U/L Total Bilirubin 0.5 MG/DL Sodium Level 140 MEQ/L Potassium Level 4.2 MEQ/L Chloride Level 107 MEQ/L Carbon Dioxide Level 25.2 MEQ/L Anion Gap 8 MEQ/L Total Creatine Kinase 155 U/L Creatine Kinase MB 1.8 NG/ML Troponin I LESS THAN 0.02 NG/ML LESS THAN 0.02 NG/ML Lipase 3165 U/L 250 U/L Imaging Last Impressions Abdomen Ultrasound 07/10/17 0600 Signed Impressions: Service Date/Time: Monday, July 10, 2017 07:45 - CONCLUSION: 1. Minimal gallbladder sludge without sonographic evidence for acute cholecystitis. 2. Stable mild prominence of the left renal collecting system likely exaggerated by extrarenal pelvis. 3. Borderline hepatomegaly with diffusely increased hepatic echogenicity consistent with hepatic steatosis or medical liver disease. Trav Ramos MD Abdomen/Pelvis CT 07/09/17 2105 Signed Impressions: Service Date/Time: Sunday, July 09, 2017 21:25 - CONCLUSION: 1. No evidence of acute abdominal or pelvic process. No masses are identified. 2. Enlarged uterus with multiple fibroids Gm Dill MD Chest X-Ray 07/09/17 1850 Signed Impressions: Service Date/Time: Sunday, July 09, 2017 18:56 - CONCLUSION: 1. No acute cardiopulmonary disease. Gm Dill MD Objective Remarks General: NAD, AAOx3 Chest: CTA Cardiac: Regular Abd: +BS, soft ND, mild mid abdominal pain Ext: No edema A/P Problem List: (1) Chest pain ICD Codes: R07.9 - Chest pain, unspecified Status: Acute Plan: - Pt admitted with complaints of midsternal chest pain that radiated to her back that has been going on intermittently for the last few weeks but worsened yesterday after she left work. - Serial CE are negative x 2 - Pts only lab abnormality was an elevated Lipase level of 3165 in the ED which has normalized today to 250. - CT Abd/pelvis (07/09) --> No evidence of acute abdominal or pelvic process. No masses are identified. Enlarged uterus with multiple fibroids - Abd US (07/10) --> Minimal gallbladder sludge without sonographic evidence for acute cholecystitis. Stable mild prominence of the left renal collecting system likely exaggerated by extrarenal pelvis. Borderline hepatomegaly with diffusely increased hepatic echogenicity consistent with hepatic steatosis or medical liver disease. - Etiology for the chest pain is unclear, there may be a component of anxiety playing a role. - Repeat third set of Troponin and CKMB - Lexiscan in the morning - FLP in AM - Trial of Protonix IV - Start Lexapro 10mg HS and Xanax 0.25mg po Q6H PRN - manager monitoring - Supportive care - DVT prophylaxis (2) Abdominal pain ICD Codes: R10.9 - Unspecified abdominal pain Status: Acute Plan: - See above. - Pt with elevated Lipase at admission but no imaging studies have specified evidence of pancreatitis. - Pt with evidence of gallbladder sludge but no stones or evidence of cholecystitis on the US - ?some pancreatic irritation from the passing of some sludge - Her LFTs at admission were stable and WNL - Repeat LFTs in AM - Give IV Protonix today - Simethicone PRN Assessment and Plan Patient examined. Assessment and plan formulated with Sheila Damico PA-C. I agree with the above. Problem Qualifiers (1) Chest pain: Qualified Codes: R07.9 - Chest pain, unspecified (2) Abdominal pain: Qualified Codes: R10.9 - Unspecified abdominal pain Sheila Damico Jul 10, 2017 15:10 Alexander Vera DO Jul 15, 2017 00:14
[2017-07-10] MEDS ORDERED: SIMETHICONE 125 MG CHEWABLE TAB PO PRN (16:00)
[2017-07-10 16:23] LABS: CREATINE KINASE 95 U/L (26-192)
[2017-07-10] MEDS: PANTOPRAZOLE SODIUM 40 MG VIAL IV PUSH SCH (17:03)
[2017-07-10] MEDS ORDERED: ALPRAZolam 0.25 MG TAB PO PRN (18:00)
[2017-07-10 20:00] VITALS: BP 99/67; PULSE 71; RESP 20; TEMP 96.8; O2SAT 98
[2017-07-10] MEDS ORDERED: ESCITALOPRAM OXALATE 10 MG TAB PO SCH (21:00)
[2017-07-11] VITALS: BP 98/61; PULSE 59; RESP 18; TEMP 97.3; O2SAT 97
[2017-07-11 04:00] VITALS: BP 137/81; PULSE 58; RESP 18; TEMP 96.4; O2SAT 97
[2017-07-11 07:19] LABS: HDL CHOLESTEROL 75.8 MG/DL (40.0-60.0); TOTAL BILIRUBIN ADULT 1.2 MG/DL (0.2-1.0)
[2017-07-11 08:00] VITALS: BP 117/70; PULSE 60; RESP 16; TEMP 96.5; O2SAT 99
[2017-07-11] MEDS: DOCUSATE SODIUM 50 MG/SENNA 8.6 MG TAB PO SCH (09:00)
[2017-07-11] MEDS: PANTOPRAZOLE SODIUM 40 MG VIAL IV PUSH SCH (09:08)
[2017-07-11] MEDS: SODIUM CHLORIDE 0.9% FLUSH 10 ML FLUSH IV FLUSH SCH (09:19)
[2017-07-11 12:00] VITALS: BP 126/74; PULSE 58; RESP 17; TEMP 96.8; O2SAT 100
[2017-07-11] MEDS ORDERED: REGADENOSON INJ 0.4 MG/5 ML SYR ONE (12:41)
--- NOTE | 2017-07-11 14:34 | HHI.PR ---
Subjective Remarks No new complaints. No abdominal pain. No n/v. Pt denies chest pain. No SOB, no diaphoresis. Objective Vitals Vital Signs Date Time Temp Pulse Resp B/P (MAP) Pulse Ox O2 Delivery O2 Flow Rate FiO2 07/11/17 12:00 96.8 58 17 126/74 (91) 100 07/11/17 08:00 96.5 60 16 117/70 (86) 99 07/11/17 04:00 96.4 58 18 137/81 (99) 97 07/11/17 00:00 97.3 59 18 98/61 (73) 97 07/10/17 20:00 96.8 71 20 99/67 (78) 98 Result Diagram: 07/09/17189907/09/17 190 Imaging Last Impressions Abdomen Ultrasound 07/10/17 0600 Signed Impressions: Service Date/Time: Monday, July 10, 2017 07:45 - CONCLUSION: 1. Minimal gallbladder sludge without sonographic evidence for acute cholecystitis. 2. Stable mild prominence of the left renal collecting system likely exaggerated by extrarenal pelvis. 3. Borderline hepatomegaly with diffusely increased hepatic echogenicity consistent with hepatic steatosis or medical liver disease. Trav Ramos MD Abdomen/Pelvis CT 07/09/172104 Signed Impressions: Service Date/Time: Sunday, July 09, 2017 21:25 - CONCLUSION: 1. No evidence of acute abdominal or pelvic process. No masses are identified. 2. Enlarged uterus with multiple fibroids Gm Dill MD Chest X-Ray 07/09/17 1850 Signed Impressions: Service Date/Time: Sunday, July 09, 2017 18:56 - CONCLUSION: 1. No acute cardiopulmonary disease. Gm Dill MD Objective Remarks General: NAD, AAOx3 Chest: CTA Cardiac: Regular Abd: +BS, soft ND, mild mid abdominal pain Ext: No edema A/P Problem List: (1) Chest pain ICD Codes: R07.9 - Chest pain, unspecified Status: Acute Plan: - Pt admitted with complaints of midsternal chest pain that radiated to her back that has been going on intermittently for the last few weeks but worsened yesterday after she left work. - Serial CE are negative x 3 - Pts only lab abnormality was an elevated Lipase level of 3165 in the ED which has normalized today to 250. - CT Abd/pelvis (07/09) --> No evidence of acute abdominal or pelvic process. No masses are identified. Enlarged uterus with multiple fibroids - Abd US (07/10) --> Minimal gallbladder sludge without sonographic evidence for acute cholecystitis. Stable mild prominence of the left renal collecting system likely exaggerated by extrarenal pelvis. Borderline hepatomegaly with diffusely increased hepatic echogenicity consistent with hepatic steatosis or medical liver disease. - Etiology for the chest pain is unclear, there may be a component of anxiety playing a role. - Lexiscan (07/11/17) --> NO reversible perfusion defects - Echocardiogram --> pending - minimal elevation of total bilirubin 1.2, Indirect bilirubin 1.0 (07/11) - discharge to home today - f/u with PCP in 1 week, Dr. Matias Leger - f/u with Gastroenterology, Dr. Whittaker. Pt is scheduled for Colonoscopy on Sunday07/16/17 - continue Lexapro 10mg HS and Xanax 0.25mg po Q6H PRN - discharge to home - see discharge orders (2) Abdominal pain ICD Codes: R10.9 - Unspecified abdominal pain Status: Acute Plan: - See above. - Pt with elevated Lipase at admission but no imaging studies have specified evidence of pancreatitis. - Pt with evidence of gallbladder sludge but no stones or evidence of cholecystitis on the US - ?some pancreatic irritation from the passing of some sludge - Her LFTs at admission were stable and WNL - see above Problem Qualifiers (1) Chest pain: Qualified Codes: R07.9 - Chest pain, unspecified (2) Abdominal pain: Qualified Codes: R10.9 - Unspecified abdominal pain Alexander Vera DO Jul 11, 2017 14:34
[2017-07-11] MEDS ORDERED: ALPR.25 PO (14:36)
[2017-07-11] MEDS ORDERED: ESCI10TA PO (14:36)
--- NOTE | 2017-07-11 14:41 | HHI.DCPOC ---
Discharge Care Plan Diagnosis: (1) Anxiety (2) Chest pain (3) Abdominal pain Goals to Promote Your Health * To prevent worsening of your condition and complications * To maintain your health at the optimal level Directions to Meet Your Goals Take your medications as prescribed Follow your dietary instruction Follow activity as directed Keep your appointments as scheduled Take your immunizations and boosters as scheduled If your symptoms worsen call your PCP, if no PCP go to Urgent Care Center or Emergency Room Smoking is Dangerous to Your Health. Avoid second hand smoke Call the 24-hour hour crisis hotline for domestic abuse at Alexander Vera DO Jul 11, 2017 14:41
[2017-07-11] MEDS: ACETAMINOPHEN 325 MG TAB PO PRN (14:57)
[2017-07-11 16:00] VITALS: BP 128/76; PULSE 63; RESP 16; TEMP 97.3; O2SAT 100
--- NOTE | 2017-07-11 16:48 | RADRPT ---
EXAM DATE/TIME: 07/11/2017 11:30 [facility] COMPARISON: No previous studies available for comparison. INDICATIONS : Substernal chest pain radiating to back. Angina. DOSE: 26.2 mCi Tc99m Myoview at stress. 8.6 mCi Tc99m Myoview at rest. 0.4 mg Lexiscan STRESS SYMPTOMS: Dyspnea and chest tightness. EJECTION FRACTION: 61% MEDICAL HISTORY : None SURGICAL HISTORY : Left knee. ENCOUNTER: Initial ACUITY: 1 day PAIN SCALE: 7/10 LOCATION: Substernal chest TECHNIQUE: The patient underwent pharmacologic stress with infusion of prescribed dose. Continuous ECG tracing was monitored during stress. Gated SPECT imaging was performed after stress and conventional SPECT i maging was performed at rest. The examination was performed on a SPECT/CT scanner, both attenuation and non-corrected datasets were reviewed. FINDINGS: DISTRIBUTION: The maximum perfused segment at stress is in the anterior wall. PERFUSION STUDY: The pattern of perfusion at stress is within normal limits. GATED STUDY: There is intact wall motion and thickening without hypokinetic or dyskinetic segments. CONCLUSION: 1. Unremarkable myocardial perfusion scan. RISK CATEGORY: Low (<1% Annual Mortality Rate) Gm Dill MD on July 11, 2017 at 16:46 Board Certified Radiologist. This report was verified electronically.
--- NOTE | 2017-07-11 17:16 | ECHRPT ---
Indication: chest pain CONCLUSIONS Normal left ventricular size. Wall thickness is normal. The left ventricular systolic function is low normal with an estimated ejection fraction of 50%. Trace mitral valve regurgitation. There is trace tricuspid valve regurgitation. BP: 137 / 81 HR: 58 Rhythm: Sinus MEASUREMENTS (Male / Female) Normal Values Technical Quality:Good 2D ECHO LV Diastolic Diameter PLAX 4.4 cm 4.2 - 5.9 / 3.9 - 5.3 cm LV Systolic Diameter PLAX 3.5 cm IVS Diastolic Thickness 1.1 cm 0.6 - 1.0 / 0.6 - 0.9 cm LVPW Diastolic Thickness 0.7 cm 0.6 - 1.0 / 0.6 - 0.9 cm LV Relative Wall Thickness 0.4 RV Internal Dim ED PLAX 2.3 cm LA Systolic Diameter LX 3.5 cm 3.0 - 4.0 / 2.7 - 3.8 cm DOPPLER Mitral E Point Velocity 76.5 cm/s Mitral A Point Velocity 68.6 cm/s Mitral E to A Ratio 1.1 TR Peak Velocity 191.0 cm/s TR Peak Gradient 14.6 mmHg Right Atrial Pressure 5.0 mmHg Pulmonary Artery Systolic Pressu 19.6 mmHg Right Ventricular Systolic Press 19.6 mmHg FINDINGS LEFT VENTRICLE Normal left ventricular size. Wall thickness is normal. The left ventricular systolic function is low normal with an estimated ejection fraction of 50%. RIGHT VENTRICLE Normal right ventricular size and systolic function. LEFT ATRIUM The left atrial size is normal. RIGHT ATRIUM The right atrial size is normal. ATRIAL SEPTUM Normal atrial septal thickness without atrial level shunting by limited color doppler interrogation. AORTA The aortic root and proximal ascending aorta are normal in size on limited imaging. MITRAL VALVE Trace mitral valve regurgitation. AORTIC VALVE Trileaflet aortic valve. No aortic valve stenosis or regurgitation. TRICUSPID VALVE There is trace tricuspid valve regurgitation. The estimated pulmonary arterial pressure is 19.6 mmHg. PULMONARY VALVE No pulmonary valve regurgitation or stenosis. VESSELS The inferior vena cava is normal in size. PERICARDIUM No pericardial effusion. Charlene Becker MD, FACC (Electronically Signed) Final Date:11 July 2017 17:15
== END 2017-07-11 17:40 | disposition home or self-care (01) | DRG 440 ==
LOC: NEPC 17:22 → NEDA 21:47 → N07A 22:34
PROVIDERS: ADMIT Hospitalist; ATTEND Hospitalist
DX: K85.90 Acute pancreatitis without necrosis or infection, unspecified (principal); R16.0 Hepatomegaly, not elsewhere classified; F41.9 Anxiety disorder, unspecified; G47.9 Sleep disorder, unspecified; R07.89 Other chest pain; D25.9 Leiomyoma of uterus, unspecified; J45.909 Unspecified asthma, uncomplicated; Z79.82 Long term (current) use of aspirin; Z86.718 Personal history of other venous thrombosis and embolism; Z96.652 Presence of left artificial knee joint; K59.00 Constipation, unspecified
CPT/HCPCS: 71010; 74177; 76700; 78452; 80053; 80061; 80076; 82550; 82552; 83690; 83735; 84484; 85025; 85610; 85730; 93005; 93017; 93306; 96361; 96374; A9502; C9113; J1885; J2060; J2785; J7030; J7040; Q9967